=== PATIENT | male | born 1930 | race Caucasian/White ===

== ENCOUNTER 2017-08-18 17:20 | Inpatient (IN) | payer MEDICARE ==
[~2017-08-18] VITALS: Ht 170.2 cm; Wt 82.1 kg
[~2017-08-18 17:20] MED LIST: AMOX500C PO; ASPI-147 PO; BENZ1CAP54 PO; GLIP1TAB60 PO; LISI40TA PO; NAPR-855 PO; NIFE1TAB PO; POTA10CA PO; SIMV40TA PO; TRIA37.5 PO
[2017-08-18 17:21] VITALS: BP 139/67; PULSE 90; RESP 18; TEMP 99.5; O2SAT 94
[2017-08-18] MEDS ORDERED: AZAT50 PO (18:09)
[2017-08-18] MEDS ORDERED: SODIUM CHLORIDE 0.9% FLUSH 10 ML FLUSH IVF PRN (18:15)
[2017-08-18 18:16] VITALS: RESP 18; O2SAT 95; O2SAT 97
--- NOTE | 2017-08-18 18:28 | PD ---
HPI Chief Complaint: General Weakness Time Seen by Provider: 17:45 Travel History International Travel<30 days: No Contact w/Intl Traveler<30days: No Traveled to known affect area: No History of Present Illness HPI 87-year-old male presents emergency department for evaluation of generalized weakness for the past 3 weeks. The patient follows the [facility] and according to his daughter had 2 bouts of flulike illness both of her to resolve but he hasn't rebounded back from the second one. Patient just states he feels no energy, denies any depression said feeling cough congestion runny nose dysuria abdominal pain nausea vomiting. The only other symptom positive on his review of systems is some minimal chills which expressed last night. Otherwise he states he feels okay. Symptoms moderate, for the past 3 weeks, constant, context as above. 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 Naproxen 375 Mg Tab 375 Mg PO BID Ecotrin Low Strength (Aspirin) 81 Mg Tabdr 81 Mg PO DAILY Nifedipine ER 24 HR (Nifedipine) 90 Mg Tab 90 Mg PO DAILY Lisinopril 40 Mg Tab 40 Mg PO DAILY Simvastatin 40 Mg Tab 40 Mg PO HS Potassium Chloride ER (Potassium Chloride) 10 Meq Cap 10 Meq PO DAILY Glipizide ER (Glipizide) 2.5 Mg Alejandro 2.5 Mg PO DAILY Take with breakfast or first main meal of the day Review of Systems Except as stated in HPI: all other systems reviewed are Neg Physical Exam Narrative GENERAL: Well-developed well-nourished, quite pleasant in no obvious distress. SKIN: Focused skin assessment warm/dry. HEAD: Atraumatic. Normocephalic. EYES: Pupils equal and round. No scleral icterus. No injection or drainage. ENT: No nasal bleeding or discharge. Mucous membranes pink and moist. The scar bilaterally, oropharynx clear moist. NECK: Trachea midline. No JVD. CARDIOVASCULAR: Regular rate and rhythm. No murmur appreciated. RESPIRATORY: No accessory muscle use. Clear to auscultation. Breath sounds equal bilaterally. GASTROINTESTINAL: Abdomen soft, non-tender, nondistended. Hepatic and splenic margins not palpable. MUSCULOSKELETAL: No obvious deformities. No clubbing. No cyanosis. No edema. NEUROLOGICAL: Awake and alert. No obvious cranial nerve deficits. Motor grossly within normal limits. Normal speech. PSYCHIATRIC: Appropriate mood and affect; insight and judgment normal. Data Data Last Documented VS Vital Signs Date Time Temp Pulse Resp B/P (MAP) Pulse Ox O2 Delivery O2 Flow Rate FiO2 08/18/17 19:11 76 20 145/69 (94) 96 Room Air 08/18/17 17:21 99.5 Orders Orders Electrocardiogram (08/18/17 18:08) Ckmb (Isoenzyme) Profile (08/18/17 18:08) Complete Blood Count With Diff (08/18/17 18:08) Comprehensive Metabolic Panel (08/18/17 18:08) Magnesium (Mg) (08/18/17 18:08) Prothrombin Time / Inr (Pt) (08/18/17 18:08) Act Partial Throm Time (Ptt) (08/18/17 18:08) Troponin I (08/18/17 18:08) Ecg Monitoring (08/18/17 18:08) Iv Access Insert/Monitor (08/18/17 18:08) Oximetry (08/18/17 18:08) Oxygen Administration (08/18/17 18:08) Sodium Chloride 0.9% Flush (Ns Flush) (08/18/17 18:15) Influenzae A/B Antigen (08/18/17 18:23) Thyroid Stimulating Hormone (08/18/17 18:23) Chest, Pa & Lat (08/18/17 ) Admit Order (Ed Use Only) (08/18/17 21:15) Labs Laboratory Tests Test 08/18/17 18:15 White Blood Count 12.4 TH/MM3 Red Blood Count 4.08 MIL/MM3 Hemoglobin 13.2 GM/DL Hematocrit 37.2 % Mean Corpuscular Volume 91.3 FL Mean Corpuscular Hemoglobin 32.4 PG Mean Corpuscular Hemoglobin Concent 35.5 % Red Cell Distribution Width 13.8 % Platelet Count 361 TH/MM3 Mean Platelet Volume 7.5 FL Neutrophils (%) (Auto) 96.1 % Lymphocytes (%) (Auto) 1.2 % Monocytes (%) (Auto) 1.8 % Eosinophils (%) (Auto) 0.4 % Basophils (%) (Auto) 0.5 % Neutrophils # (Auto) 11.9 TH/MM3 Lymphocytes # (Auto) 0.1 TH/MM3 Monocytes # (Auto) 0.2 TH/MM3 Eosinophils # (Auto) 0.1 TH/MM3 Basophils # (Auto) 0.1 TH/MM3 CBC Comment DIFF FINAL Differential Comment Prothrombin Time 12.2 SEC Prothromb Time International Ratio 1.1 RATIO Activated Partial Thromboplast Time 32.7 SEC Blood Urea Nitrogen 26 MG/DL Creatinine 1.00 MG/DL Random Glucose 122 MG/DL Total Protein 7.1 GM/DL Albumin 2.5 GM/DL Calcium Level 8.4 MG/DL Magnesium Level 1.7 MG/DL Alkaline Phosphatase 57 U/L Aspartate Amino Transf (AST/SGOT) 83 U/L Alanine Aminotransferase (ALT/SGPT) 87 U/L Total Bilirubin 0.8 MG/DL Sodium Level 128 MEQ/L Potassium Level 3.6 MEQ/L Chloride Level 92 MEQ/L Carbon Dioxide Level 29.0 MEQ/L Anion Gap 7 MEQ/L Estimat Glomerular Filtration Rate 71 ML/MIN Total Creatine Kinase 31 U/L Troponin I LESS THAN 0.02 NG/ML Thyroid Stimulating Hormone 3rd Gen 4.620 uIU/ML MDM Medical Decision Making Medical Screen Exam Complete: Yes Emergency Medical Condition: Yes Differential Diagnosis Hypothyroid, pneumonia, urinary tract infection, anemia, fatigue. Narrative Course Patient roomed in emergency department, appears well in no obvious distress, basic labs have been ordered, patient will be discussed with oncoming provider at 1900 shift change to follow-up labs and disposition appropriately. Rigo Driscoll MD Aug 18, 2017 18:28
[2017-08-18 18:47] LABS: AUTOMATED NEUTROPHIL # 11.9 TH/MM3 (1.8-7.7); BASOPHIL # 0.1 TH/MM3 (0-0.2); BASOPHIL % 0.5 % (0.0-2.0); EOSINOPHIL # 0.1 TH/MM3 (0-0.4); EOSINOPHIL % 0.4 % (0.0-4.0); HEMATOCRIT 37.2 % (39.0-51.0); HEMO FLAGS DIFF FINAL; LYMPH % 1.2 % (9.0-44.0); LYMPHOCYTE # 0.1 TH/MM3 (1.0-4.8); MEAN CELL VOLUME 91.3 FL (80.0-100.0); MEAN CORPUSCULAR HEMOGLOBIN 32.4 PG (27.0-34.0); MEAN CORPUSCULAR HGB CONC 35.5 % (32.0-36.0); MONO % 1.8 % (0.0-8.0); NEUT % 96.1 % (16.0-70.0); PLATELET COUNT 361 TH/MM3 (150-450); RED BLOOD COUNT 4.08 MIL/MM3 (4.50-5.90); RED CELL DISTRIBUTION WIDTH 13.8 % (11.6-17.2); WHITE BLOOD COUNT 12.4 TH/MM3 (4.0-11.0)
[2017-08-18 19:00] LABS: APTT (PATIENT) 32.7 SEC (24.3-30.1); INTERNATIONAL NORMALIZED RATIO 1.1 RATIO; PROTHROMBIN TIME - PATIENT 12.2 SEC (9.8-11.6)
[2017-08-18 19:02] LABS: ANION GAP 7 MEQ/L (5-15); AST (GOT) 83 U/L (15-37); BLOOD UREA NITROGEN 26 MG/DL (7-18); CHLORIDE 92 MEQ/L (98-107); GLOMERULAR FILTRATION RATE 71 ML/MIN (>89); MAGNESIUM 1.7 MG/DL (1.5-2.5); POTASSIUM 3.6 MEQ/L (3.5-5.1); SODIUM (NA) 128 MEQ/L (136-145)
[2017-08-18 19:04] LABS: ALT (GPT) 87 U/L (12-78)
[2017-08-18 19:07] LABS: ALKALINE PHOSPHATASE 57 U/L (45-117); TOTAL BILIRUBIN ADULT 0.8 MG/DL (0.2-1.0)
[2017-08-18 19:10] LABS: CREATINE KINASE 31 U/L (39-308)
[2017-08-18 19:11] VITALS: BP 145/69; PULSE 76; RESP 20; O2SAT 96
--- NOTE | 2017-08-18 19:11 | RADRPT ---
EXAM DATE/TIME: 08/18/2017 18:54 [facility] COMPARISON: CHEST PA & LAT, May 22, 2017, 10:27. INDICATIONS : Shortness of breath, weakness, dizziness. MEDICAL HISTORY : None. SURGICAL HISTORY : None. ENCOUNTER: Initial ACUITY: 3 days PAIN SCORE: 0/10 LOCATION: Bilateral chest FINDINGS: PA and lateral views of the chest demonstrate the lungs to be symmetrically aerated without evidence of mass, infiltrate or effusion. The cardiomediastinal contours are unremarkable. Mild degenerative changes in the mid thoracic spine, stable.. CONCLUSION: No acute cardiopulmonary disease. Hector Green MD on August 18, 2017 at 19:10 Board Certified Radiologist. This report was verified electronically.
--- NOTE | 2017-08-18 20:55 | PD ---
Physical Exam Date Seen by Provider: Aug 18, 2017 Data Data Last Documented VS Vital Signs Date Time Temp Pulse Resp B/P (MAP) Pulse Ox O2 Delivery O2 Flow Rate FiO2 08/18/17 19:11 76 20 145/69 (94) 96 Room Air 08/18/17 17:21 99.5 Orders Orders Electrocardiogram (08/18/17 18:08) Ckmb (Isoenzyme) Profile (08/18/17 18:08) Complete Blood Count With Diff (08/18/17 18:08) Comprehensive Metabolic Panel (08/18/17 18:08) Magnesium (Mg) (08/18/17 18:08) Prothrombin Time / Inr (Pt) (08/18/17 18:08) Act Partial Throm Time (Ptt) (08/18/17 18:08) Troponin I (08/18/17 18:08) Ecg Monitoring (08/18/17 18:08) Iv Access Insert/Monitor (08/18/17 18:08) Oximetry (08/18/17 18:08) Oxygen Administration (08/18/17 18:08) Sodium Chloride 0.9% Flush (Ns Flush) (08/18/17 18:15) Influenzae A/B Antigen (08/18/17 18:23) Thyroid Stimulating Hormone (08/18/17 18:23) Chest, Pa & Lat (08/18/17 ) Labs Laboratory Tests Test 08/18/17 18:15 White Blood Count 12.4 TH/MM3 Red Blood Count 4.08 MIL/MM3 Hemoglobin 13.2 GM/DL Hematocrit 37.2 % Mean Corpuscular Volume 91.3 FL Mean Corpuscular Hemoglobin 32.4 PG Mean Corpuscular Hemoglobin Concent 35.5 % Red Cell Distribution Width 13.8 % Platelet Count 361 TH/MM3 Mean Platelet Volume 7.5 FL Neutrophils (%) (Auto) 96.1 % Lymphocytes (%) (Auto) 1.2 % Monocytes (%) (Auto) 1.8 % Eosinophils (%) (Auto) 0.4 % Basophils (%) (Auto) 0.5 % Neutrophils # (Auto) 11.9 TH/MM3 Lymphocytes # (Auto) 0.1 TH/MM3 Monocytes # (Auto) 0.2 TH/MM3 Eosinophils # (Auto) 0.1 TH/MM3 Basophils # (Auto) 0.1 TH/MM3 CBC Comment DIFF FINAL Differential Comment Prothrombin Time 12.2 SEC Prothromb Time International Ratio 1.1 RATIO Activated Partial Thromboplast Time 32.7 SEC Blood Urea Nitrogen 26 MG/DL Creatinine 1.00 MG/DL Random Glucose 122 MG/DL Total Protein 7.1 GM/DL Albumin 2.5 GM/DL Calcium Level 8.4 MG/DL Magnesium Level 1.7 MG/DL Alkaline Phosphatase 57 U/L Aspartate Amino Transf (AST/SGOT) 83 U/L Alanine Aminotransferase (ALT/SGPT) 87 U/L Total Bilirubin 0.8 MG/DL Sodium Level 128 MEQ/L Potassium Level 3.6 MEQ/L Chloride Level 92 MEQ/L Carbon Dioxide Level 29.0 MEQ/L Anion Gap 7 MEQ/L Estimat Glomerular Filtration Rate 71 ML/MIN Total Creatine Kinase 31 U/L Troponin I LESS THAN 0.02 NG/ML MDM Medical Record Reviewed: Yes Supervised Visit with ZAINAB: No Interpretation(s) Vital Signs Date Time Temp Pulse Resp B/P (MAP) Pulse Ox O2 Delivery O2 Flow Rate FiO2 08/18/17 19:11 76 20 145/69 (94) 96 Room Air 08/18/17 18:16 18 97 Room Air 08/18/17 18:16 97 Room Air 08/18/17 18:10 80 17 96 Room Air 08/18/17 17:21 99.5 90 18 139/67 (91) 94 Room Air CBC & BMP Diagram 08/18/17 18:15 Total Protein 7.1, Albumin 2.5 L, Calcium Level 8.4 L, Magnesium Level 1.7, Alkaline Phosphatase 57, Aspartate Amino Transf (AST/SGOT) 83 H, Alanine Aminotransferase (ALT/SGPT) 87 H, Total Bilirubin 0.8 Last Impressions Chest X-Ray 08/18/17 0000 Signed Impressions: Service Date/Time: Friday, August 18, 2017 18:54 - CONCLUSION: No acute cardiopulmonary disease. Hector Green MD Narrative Course Patient signed out to me by Dr. Driscoll at change of shift. Patient with generalized weakness which is an ongoing for the past few weeks, patient's blood work was pending at change of shift. CBC & BMP Diagram 08/18/17 18:15 Total Protein 7.1, Albumin 2.5 L, Calcium Level 8.4 L, Magnesium Level 1.7, Alkaline Phosphatase 57, Aspartate Amino Transf (AST/SGOT) 83 H, Alanine Aminotransferase (ALT/SGPT) 87 H, Total Bilirubin 0.8 Microbiology Date/Time Source Procedure Growth Status 08/18/17 18:21 Nasal Aspirate Influenza Types A,B Antigen (REGINE) - Final NEGATIVE FOR FLU A AND B ANTIGEN.... Complete Patient's sodium is 128, concern for symptomatic hyponatremia. Patient will require observation this time. Case reviewed with Dr. Daniels who accepts pt to service Diagnosis Primary Impression: Hyponatremia Admitting Information Admitting Physician Requests: Observation Gwen Land DO Aug 18, 2017 20:55
[2017-08-18 21:40] VITALS: BP 132/62; PULSE 73; RESP 18; O2SAT 94
[2017-08-18] MEDS ORDERED: LACTULOSE SYRUP 20 GM/30 ML CUP PO PRN (23:00)
[2017-08-18] MEDS ORDERED: MAGNESIUM HYDROXIDE SUSP 30 ML CUP PO PRN (23:00)
[2017-08-18] MEDS ORDERED: ONDANSETRON HCL 4 MG/2 ML VIAL IVP PRN (23:00)
[2017-08-18] MEDS ORDERED: BISACODYL 10 MG SUPP RECTAL PRN (23:00)
[2017-08-18] MEDS ORDERED: SENNOSIDES 8.6 MG TAB PO PRN (23:00)
[2017-08-18] MEDS ORDERED: ACETAMINOPHEN 325 MG TAB PO PRN (23:00)
[2017-08-18] MEDS ORDERED: SODIUM CHLOR 0.9% 1000 ML INJ 1,000 ML IV SCH (23:00)
[2017-08-18] MEDS ORDERED: NALOXONE HCL 0.4 MG/ML AMP IV PUSH PRN (23:00)
[2017-08-18] MEDS ORDERED: SODIUM CHLORIDE 0.9% FLUSH 10 ML FLUSH IV FLUSH PRN (23:00)
--- NOTE | 2017-08-18 23:16 | HHI.HP ---
[facility] Admission Diagnosis Symptomatic hyponatremia Diagnoses: Travel History International Travel<30 Days: No Contact w/Intl Traveler <30 Da: No Traveled to Known Affected Are: No History of Present Illness 87-year-old male with a past medical history significant for hypertension, hyperlipidemia, borderline diabetes mellitus and rheumatoid arthritis presents with a 3 week history of worsening fatigue. The patient is recovering from an upper respiratory infection and "just hasn't bounced back." He reports feeling is that he has no energy and is unable to complete his daily tasks. He denies fever but endorses chills. Denies congestion, cough, chest pain, shortness of breath. The patient's lab work was significant for a sodium of 128. He also has a mild transaminitis with AST/ALT of 83/87, unknown baseline as patient has not had lab work done here before. He is treated at the [facility] for his chronic medical conditions. Review of Systems Denies fever, endorses chills Denies blurry vision, otorrhea, rhinorrhea Denies sore throat and cough No chest pain, palpitations, shortness of breath No abdominal pain Denies constipation/diarrhea/nausea/vomiting Denies muscle pain/weakness No rashes Past Family Social History Past Medical History Rheumatoid arthritis Hypertension Hyperlipidemia Borderline diabetes mellitus, on glipizide Past Surgical History None Reported Medications Reported Meds & Active Scripts Active Reported Azathioprine 50 Mg Tab 50 Mg PO BID Hazardous agent use appropriate precautions for handling and disposal. Naproxen 375 Mg Tab 375 Mg PO BID Ecotrin Low Strength (Aspirin) 81 Mg Tabdr 81 Mg PO DAILY Nifedipine ER 24 HR (Nifedipine) 90 Mg Tab 90 Mg PO DAILY Lisinopril 40 Mg Tab 40 Mg PO DAILY Simvastatin 40 Mg Tab 40 Mg PO HS Triamterene-Hydrochlorothiazide 37.5-25 Mg Tab 1 Tab PO DAILY Potassium Chloride ER (Potassium Chloride) 10 Meq Cap 10 Meq PO DAILY Glipizide ER (Glipizide) 2.5 Mg Alejandro 2.5 Mg PO DAILY Take with breakfast or first main meal of the day Allergies: Coded Allergies: No Known Drug Allergies (Verified Allergy, Unknown, 08/18/17) Family History Mother with colon cancer. Father with throat cancer. Social History Never smoker. Drinks approximately 2 drinks per night. Denies illicit drugs. Physical Exam Vital Signs Vital Signs Date Time Temp Pulse Resp B/P (MAP) Pulse Ox O2 Delivery O2 Flow Rate FiO2 08/18/17 21:40 73 18 132/62 (85) 94 Room Air 08/18/17 19:11 76 20 145/69 (94) 96 Room Air 08/18/17 18:16 18 97 Room Air 08/18/17 18:16 97 Room Air 08/18/17 18:10 80 17 96 Room Air 08/18/17 17:21 99.5 90 18 139/67 (91) 94 Room Air Physical Exam GENERAL: Elderly male lying in bed SKIN: No rashes, ecchymoses or lesions. Cool and dry. HEAD: Atraumatic. Normocephalic. No temporal or scalp tenderness. EYES: Pupils equal round and reactive. Extraocular motions intact. No scleral icterus. No injection or drainage. ENT: Nose without bleeding, purulent drainage or septal hematoma. Throat without erythema, tonsillar hypertrophy or exudate. Uvula midline. Airway patent. NECK: Trachea midline. No JVD or lymphadenopathy. Supple, nontender, no meningeal signs. CARDIOVASCULAR: Regular rate and rhythm with 3/6 LAURYN RESPIRATORY: Clear to auscultation. Breath sounds equal bilaterally. No wheezes , rales, or rhonchi. GASTROINTESTINAL: Abdomen soft, non-tender, nondistended. No hepato-splenomegaly , or palpable masses. No guarding. MUSCULOSKELETAL: Extremities without clubbing, cyanosis, or edema. No joint tenderness, effusion, or edema noted. No calf tenderness. Negative Homans sign bilaterally. NEUROLOGICAL: Awake and alert. Cranial nerves II through XII intact. Motor and sensory grossly within normal limits. Normal speech. Laboratory Laboratory Tests Test 08/18/17 18:15 White Blood Count 12.4 Red Blood Count 4.08 Hemoglobin 13.2 Hematocrit 37.2 Mean Corpuscular Volume 91.3 Mean Corpuscular Hemoglobin 32.4 Mean Corpuscular Hemoglobin Concent 35.5 Red Cell Distribution Width 13.8 Platelet Count 361 Mean Platelet Volume 7.5 Neutrophils (%) (Auto) 96.1 Lymphocytes (%) (Auto) 1.2 Monocytes (%) (Auto) 1.8 Eosinophils (%) (Auto) 0.4 Basophils (%) (Auto) 0.5 Neutrophils # (Auto) 11.9 Lymphocytes # (Auto) 0.1 Monocytes # (Auto) 0.2 Eosinophils # (Auto) 0.1 Basophils # (Auto) 0.1 CBC Comment DIFF FINAL Differential Comment Prothrombin Time 12.2 Prothromb Time International Ratio 1.1 Activated Partial Thromboplast Time 32.7 Blood Urea Nitrogen 26 Creatinine 1.00 Random Glucose 122 Total Protein 7.1 Albumin 2.5 Calcium Level 8.4 Magnesium Level 1.7 Alkaline Phosphatase 57 Aspartate Amino Transf (AST/SGOT) 83 Alanine Aminotransferase (ALT/SGPT) 87 Total Bilirubin 0.8 Sodium Level 128 Potassium Level 3.6 Chloride Level 92 Carbon Dioxide Level 29.0 Anion Gap 7 Estimat Glomerular Filtration Rate 71 Total Creatine Kinase 31 Troponin I LESS THAN 0.02 Thyroid Stimulating Hormone 3rd Gen 4.620 Date/Time Source Procedure Growth Status 08/18/17 18:21 Nasal Aspirate Influenza Types A,B Antigen (REGINE) - Final NEGATIVE FOR FLU A AND B ANTIGEN.... Complete Result Diagram: 08/18/17181408/18/171814 Caprini VTE Risk Assessment Caprini VTE Risk Assessment: Mod/High Risk (score >= 2) Caprini Risk Assessment Model Point Value = 1 Point Value = 2 Point Value = 3 Point Value = 5 Age 41-60 Minor surgery BMI > 25 kg/m2 Swollen legs Varicose veins or History of unexplained or recurrent spontaneous Oral contraceptives or hormone replacement Sepsis (< 1 month) Serious lung disease, including pneumonia (< 1 month) Abnormal pulmonary function Acute myocardial infarction Congestive heart failure (< 1 month) History of inflammatory bowel disease Medical patient at bed rest Age 61-74 Arthroscopic surgery Major open surgery (> 45 min) Laparoscopic surgery (> 45 min) Malignancy Confined to bed (> 72 hours) Immobilizing plaster cast Central venous access Age >= 75 History of VTE Family history of VTE Factor V Leiden Prothrombin [id number] Lupus anticoagulant Anticardiolipin antibodies Elevated serum homocysteine Heparin-induced thrombocytopenia Other congenital or acquired thrombophilia Stroke (< 1 month) Elective arthroplasty Hip, pelvis, or leg fracture Acute spinal cord injury (< 1 month) Prophylaxis Regimen Total Risk Factor Score Risk Level Prophylaxis Regimen 0-1 Low Early ambulation 2 Moderate Order ONE of the following: *Sequential Compression Device (SCD) *Heparin 5000 units SQ BID 3-4 Higher Order ONE of the following medications: *Heparin 5000 units SQ TID *Enoxaparin/Lovenox 40 mg SQ daily (WT < 150 kg, CrCl > 30 mL/min) *Enoxaparin/Lovenox 30 mg SQ daily (WT < 150 kg, CrCl > 10-29 mL/min) *Enoxaparin/Lovenox 30 mg SQ BID (WT < 150 kg, CrCl > 30 mL/min) AND/OR *Sequential Compression Device (SCD) 5 or more Highest Order ONE of the following medications: *Heparin 5000 units SQ TID (Preferred with Epidurals) *Enoxaparin/Lovenox 40 mg SQ daily (WT < 150 kg, CrCl > 30 mL/min) *Enoxaparin/Lovenox 30 mg SQ daily (WT < 150 kg, CrCl > 10-29 mL/min) *Enoxaparin/Lovenox 30 mg SQ BID (WT < 150 kg, CrCl > 30 mL/min) AND *Sequential Compression Device (SCD) Assessment and Plan Assessment and Plan 87-year-old male with a past medical history significant for rheumatoid arthritis, hypertension, hyperlipidemia and borderline diabetes mellitus presents with a three-week history of increasing fatigue. Found to have a sodium of 128. 1. Symptomatic hyponatremia Sodium 128 Fluid restriction, NS at 50 cc/hr Monitor BMP 2. Mild transaminitis AST/ALT 83/87 Unknown baseline [facility] will need [facility] 3. Rheumatoid arthritis/hypertension/hyperlipidemia Continue home medications 4. Borderline diabetes mellitus Holding home glipizide Monitor blood glucose FEN Heart healthy diet with fluid restriction NS at 50 cc/hr Electrolytes: as above Heparin Case discussed with ER physician at length Physician Certification 2 Midnight Certification Type: Admission for Inpatient Services Order for Inpatient Services The services are ordered in accordance with Medicare regulations or non- Medicare payer requirements, as applicable. In the case of services not specified as inpatient-only, they are appropriately provided as inpatient services in accordance with the 2-midnight benchmark. Estimated LOS (days): 2 2 days is the estimated time the patient will need to remain in the hospital, assuming treatment plan goals are met and no additional complications. Post-Hospital Plan: Not yet determined Gwen Daniels MD Aug 18, 2017 23:16
[2017-08-18] MEDS: HEPARIN SODIUM - SQ 10,000 UNITS/ML VIAL SQ SCH (23:52)
[2017-08-18 23:53] VITALS: BP 133/68
[2017-08-19 00:47] VITALS: O2SAT 95
[2017-08-19 00:51] VITALS: BP 122/58; PULSE 68; RESP 19; TEMP 97.9; O2SAT 94
[2017-08-19 04:39] VITALS: BP 129/61; PULSE 66; RESP 20; TEMP 98; O2SAT 95
[2017-08-19] MEDS: HEPARIN SODIUM - SQ 10,000 UNITS/ML VIAL SQ SCH (06:16)
[2017-08-19 06:56] LABS: AUTOMATED NEUTROPHIL # 7.7 TH/MM3 (1.8-7.7); BASOPHIL % 0.2 % (0.0-2.0); EOSINOPHIL # 0.2 TH/MM3 (0-0.4); EOSINOPHIL % 1.9 % (0.0-4.0); HEMATOCRIT 34.5 % (39.0-51.0); HEMO FLAGS DIFF FINAL; LYMPH % 4.4 % (9.0-44.0); LYMPHOCYTE # 0.4 TH/MM3 (1.0-4.8); MEAN CELL VOLUME 90.8 FL (80.0-100.0); MEAN CORPUSCULAR HGB CONC 35.2 % (32.0-36.0); MONO % 3.3 % (0.0-8.0); NEUT % 90.2 % (16.0-70.0); PLATELET COUNT 321 TH/MM3 (150-450); WHITE BLOOD COUNT 8.5 TH/MM3 (4.0-11.0)
[2017-08-19 07:08] LABS: ALT (GPT) 71 U/L (12-78); ANION GAP 8 MEQ/L (5-15); AST (GOT) 57 U/L (15-37); BICARBONATE 28.9 MEQ/L (21.0-32.0); BLOOD UREA NITROGEN 20 MG/DL (7-18); CHLORIDE 97 MEQ/L (98-107); GLOMERULAR FILTRATION RATE 113 ML/MIN (>89); POTASSIUM 3.3 MEQ/L (3.5-5.1); SODIUM (NA) 134 MEQ/L (136-145)
[2017-08-19 07:11] LABS: ALKALINE PHOSPHATASE 49 U/L (45-117); TOTAL BILIRUBIN ADULT 0.6 MG/DL (0.2-1.0)
--- NOTE | 2017-08-19 08:13 | HHI.PR ---
Subjective Remarks Feels much better and wants to go home. Tolerates food. No n/v/d/c./ No abd pain or muscle cramps. He is ambulating without any problems. Had a normal BM No fever or chills. Objective Vitals Vital Signs Date Time Temp Pulse Resp B/P (MAP) Pulse Ox O2 Delivery O2 Flow Rate FiO2 08/19/17 04:39 98.0 66 20 129/61 (83) 95 08/19/17 00:51 97.9 68 19 122/58 (79) 94 08/19/17 00:47 95 08/18/17 23:53 74 18 133/68 (89) 95 08/18/17 21:40 73 18 132/62 (85) 94 Room Air 08/18/17 19:11 76 20 145/69 (94) 96 Room Air 08/18/17 18:16 18 97 Room Air 08/18/17 18:16 97 Room Air 08/18/17 18:10 80 17 96 Room Air 08/18/17 17:21 99.5 90 18 139/67 (91) 94 Room Air I/O 08/18/17 08/18/17 08/18/17 08/19/17 08/19/17 08/19/17 07:00 15:00 23:00 07:00 15:00 23:00 Intake Total 250 ml Balance 250 ml Intake IV Total 250 ml # Voids 2 Result Diagram: 08/19/17 0608 08/19/17 0608 Imaging Last Impressions Chest X-Ray 08/18/17 0000 Signed Impressions: Service Date/Time: Friday, August 18, 2017 18:54 - CONCLUSION: No acute cardiopulmonary disease. Hector Green MD Objective Remarks GENERAL: Elderly male lying in bed CARDIOVASCULAR: Regular rate and rhythm with 3/6 LAURYN RESPIRATORY: Clear to auscultation. Breath sounds equal bilaterally. No wheezes , rales, or rhonchi. GASTROINTESTINAL: Abdomen soft, non-tender, nondistended. No hepato-splenomegaly , or palpable masses. No guarding. MUSCULOSKELETAL: Extremities without clubbing, cyanosis, or edema. No joint tenderness, effusion, or edema noted. No calf tenderness. Negative Homans sign bilaterally. NEUROLOGICAL: Awake and alert. Cranial nerves II through XII intact. Motor and sensory grossly within normal limits. Normal speech. A/P Assessment and Plan 87-year-old male with a past medical history significant for rheumatoid arthritis, hypertension, hyperlipidemia and borderline diabetes mellitus presents with a three-week history of increasing fatigue. Found to have a sodium of 128. Symptomatic hyponatremia Sodium 128 on admission . Improved to 134 with IVF Fluid restriction, NS at 50 cc/hr Monitor BMP Hold triamtereme HCTZ. To follwo up with his PCP as OP Mild transaminitis AST/ALT 83/87 Unknown baseline [facility], will need [facility] evaluation Rheumatoid arthritis/hypertension/hyperlipidemia Continue home medications Borderline diabetes mellitus Holding home glipizide Monitor blood glucose Hypokalemia. Replaced with KCl PO. Monitor and replace as need. DVT ppx scd/teds, Heparin Discussed with the patient, nurse Patient improved significantly. Discharged home in stable condition to follow up as OP with PCP and consultants Discharge Planning Discharged home in stable condition to follow up as OP with PCP and consultants Diet regular diet as tolerated Activity ad quintin as tolerated Meds per med reconciliations. Hold triamterene /HCTZ . To follow up with his PCP as OP. Kaitlyn Oscar MD Aug 19, 2017 08:13
[2017-08-19 08:17] VITALS: BP 127/60; PULSE 70; RESP 18; TEMP 98.5; O2SAT 94
[2017-08-19] MEDS ORDERED: NIFEdipine 90 MG SUSTAINED RELEASE TAB PO SCH (09:00)
[2017-08-19] MEDS ORDERED: azaTHIOprine 50 MG TAB PO SCH (09:00)
[2017-08-19] MEDS ORDERED: ASPIRIN EC 81 MG TABEC PO SCH (09:00)
[2017-08-19] MEDS ORDERED: POTASSIUM CHLORIDE 10 MEQ CONTROLLED RELEASE TAB PO ONE (09:00)
[2017-08-19] MEDS ORDERED: SODIUM CHLORIDE 0.9% FLUSH 10 ML FLUSH IV FLUSH SCH (09:00)
[2017-08-19] MEDS ORDERED: TRIAMTERENE/HCTZ 37.5 MG/25 MG TAB PO SCH (09:00)
[2017-08-19] MEDS ORDERED: DOCUSATE SODIUM 50 MG/SENNA 8.6 MG TAB PO SCH (09:00)
[2017-08-19] MEDS ORDERED: LISINOPRIL 20 MG TAB PO SCH (09:00)
--- NOTE | 2017-08-19 10:37 | EKG ---
Date Performed: 08/18/2017 Time Performed: 18:14:21 PTAGE: 87 years EKG: Sinus rhythm NONSPECIFIC T-WAVE ABNORMALITY BORDERLINE ECG NO PREVIOUS TRACING DOCTOR: Truong Chamberlain Interpretating Date/Time 08/19/2017 10:35:59
--- NOTE | 2017-08-19 11:28 | HHI.DCPOC ---
Discharge Care Plan Diagnosis: (1) Hyponatremia Goals to Promote Your Health * To prevent worsening of your condition and complications * To maintain your health at the optimal level Directions to Meet Your Goals Take your medications as prescribed Follow your dietary instruction Follow activity as directed Keep your appointments as scheduled Take your immunizations and boosters as scheduled If your symptoms worsen call your PCP, if no PCP go to Urgent Care Center or Emergency Room Smoking is Dangerous to Your Health. Avoid second hand smoke Call the 24-hour hour crisis hotline for domestic abuse at Kaitlyn Oscar MD Aug 19, 2017 11:28
[2017-08-19 12:16] VITALS: BP 124/60; PULSE 71; RESP 18; TEMP 98; O2SAT 95
[2017-08-19] MEDS ORDERED: PRAVASTATIN SOD 40 MG TAB PO SCH (21:00)
[2017-08-20] MEDS ORDERED: INFLUENZA VIRUS VACCINE (QUADRIVALENT) 0.5 ML SYR IM ONE (10:00)
== END 2017-08-19 12:30 | disposition home or self-care (01) | DRG 641 ==
LOC: NEPE 17:20 → NEDA 21:17 → OBSVTOIN 22:59 → N05B 08-19 00:13
PROVIDERS: ADMIT Hospitalist; ATTEND Hospitalist
DX: E87.1 Hypo-osmolality and hyponatremia (principal); M06.9 Rheumatoid arthritis, unspecified; E11.9 Type 2 diabetes mellitus without complications; Z79.84 Long term (current) use of oral hypoglycemic drugs; I10 Essential (primary) hypertension; R74.0 Nonspecific elevation of levels of transaminase and lactic acid dehydrogenase [LDH]; E87.6 Hypokalemia; E78.5 Hyperlipidemia, unspecified; Z79.82 Long term (current) use of aspirin
CPT/HCPCS: 71020; 80053; 82550; 82948; 83735; 84443; 84484; 85025; 85610; 85730; 87804; 93005; J1644; J7030; J7500

== ENCOUNTER 2017-11-29 23:15 | Observation (INO) | payer MEDICARE, OTHER ==
[~2017-11-29] VITALS: Ht 170.2 cm; Wt 74.0 kg
[~2017-11-29 23:15] MED LIST changes: -AMOX500C PO; +AZAT50 PO; -BENZ1CAP54 PO; -TRIA37.5 PO
[2017-11-29] MEDS ORDERED: IOHEXOL 350 MG/ML 10 ML VIAL (for RAD DIAG) IVCONTRAST ONE (23:16)
[2017-11-29] MEDS: NITROGLYCERIN 0.4 MG SL 25 TABS/BTL SL SCH ×2 (23:45→23:50)
[2017-11-29] MEDS ORDERED: SODIUM CHLORIDE 0.9% FLUSH 10 ML FLUSH IVF PRN (23:45)
[2017-11-29] MEDS ORDERED: NITROGLYCERIN 2% OINT 1 GM PACKET TOP ONE (23:45)
--- NOTE | 2017-11-29 23:47 | PD ---
HPI Chief Complaint: Chest Pain Time Seen by Provider: 23:30 Travel History International Travel<30 days: No Contact w/Intl Traveler<30days: No Traveled to known affect area: No History of Present Illness HPI The patient is an 87 year old male who presents to the [facility] emergency department with a history of chest pain that he reports began at around 8 PM just after he went to lie down to go to bed. He reports that he had not fallen asleep yet when he had onset of a dull pain in the center of his chest. He reports that it is coming and going. He reports that it is worse with taking a deep breath. He denies having any fevers or chills, cough or congestion. He denies having any nausea or vomiting associated with this. He denies having any diaphoresis. He reports having some shortness of breath. He denies ever having a history of DVT, PE, congestive heart failure, or myocardial infarction. On review of systems otherwise, the patient denies having any radiation of his chest pain, neck pain, abdominal pain, diarrhea, urinary symptoms, or neurologic symptoms. [facility] Past Medical History Narrative Medical The patient's past medical history is significant for rheumatoid arthritis with recent exacerbation. The patient is on Enbrel injections. The patient has a history of hypertension, diabetes mellitus, hyperlipidemia. Arthritis: Yes Cancer: Yes (skin) Cardiovascular Problems: Yes High Cholesterol: Yes Diabetes: Yes Diminished Hearing: No Hypertension: Yes Musculoskeletal: Yes Integumentary: Yes Past Surgical History Narrative Surgical The patient's past surgical history is reportedly none. 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 Naproxen 375 Mg Tab 375 Mg PO BID Ecotrin Low Strength (Aspirin) 81 Mg Tabdr 81 Mg PO DAILY Nifedipine ER 24 HR (Nifedipine) 90 Mg Tab 90 Mg PO DAILY Lisinopril 40 Mg Tab 40 Mg PO DAILY Simvastatin 40 Mg Tab 40 Mg PO HS Potassium Chloride ER (Potassium Chloride) 10 Meq Cap 10 Meq PO DAILY Glipizide ER (Glipizide) 2.5 Mg Alejandro 2.5 Mg PO DAILY Take with breakfast or first main meal of the day Review of Systems Except as stated in HPI: all other systems reviewed are Neg General / Constitutional: No: Fever Eyes: No: Visual changes HENT: No: Headaches, Rhinorrhea, Congestion Cardiovascular: Positive: Chest Pain or Discomfort, Dyspnea on exertion Respiratory: Positive: Cough, Shortness of Breath Gastrointestinal: No: Nausea, Vomiting, Diarrhea, Abdominal Pain Genitourinary: No: Dysuria Musculoskeletal: Positive: Arthralgias, Pain Skin: No Rash Neurologic: Positive: Weakness (Increased fatigue, generalized weakness), No: Focal Abnormalities, Change in Mentation, Slurred Speech, Sensory Disturbance Psychiatric: No: Depression Endocrine: No: Polydipsia Hematologic/Lymphatic: No: Easy Bruising Physical Exam Narrative General: The patient is a well-developed well-nourished male in no acute distress. Head and Neck exam: Head is normocephalic atraumatic. Eyes: EOMI, pupils are equal round and reactive to light. Nose: Midline septum with pink mucous membranes Mouth: Dentition unremarkable. Moist mucus membranes. Posterior oropharynx is not erythematous. No tonsillar hypertrophy. Uvula midline. Airway patent. Neck: No palpable lymphadenopathy. No nuchal rigidity. No thyromegaly. Cardiovascular: Regular rate and rhythm without murmurs, gallops, or rubs. No pulse deficit to the extremities on simultaneous auscultation and palpation of his radial artery. Lungs: Clear to auscultation bilaterally. No wheezes, rhonchi, or rales. Abdomen: Soft, without tenderness to palpation in all 4 quadrants of the abdomen. No guarding, rebound, or rigidity. Normal bowel sounds are audible. No tenderness on palpation of McBurney's point. Negative Kapadia sign. Extremities: No clubbing or cyanosis. The patient has trace pitting edema bilateral lower extremities. He reports having chronic lower extremity edema that is slight worse than usual. 2+ pulses in all 4 extremities. No calf tenderness on palpation. Back: No costovertebral angle tenderness to palpation. Neurologic Exam: Grossly nonfocal. Skin Exam: No rash noted. Intact skin that is warm and dry. Data Data Last Documented VS Vital Signs Date Time Temp Pulse Resp B/P (MAP) Pulse Ox O2 Delivery O2 Flow Rate FiO2 11/30/17 01:09 75 18 98 Room Air 11/30/17 01:09 2.00 11/30/17 01:09 119/59 (79) Orders Orders Electrocardiogram (11/29/17 23:33) B-Type Natriuretic Peptide (11/29/17 23:33) Ckmb (Isoenzyme) Profile (11/29/17 23:33) Complete Blood Count With Diff (11/29/17 23:33) Comprehensive Metabolic Panel (11/29/17 23:33) Magnesium (Mg) (11/29/17 23:33) Prothrombin Time / Inr (Pt) (11/29/17 23:33) Act Partial Throm Time (Ptt) (11/29/17 23:33) Troponin I (11/29/17:) Lipase (11/29/17 23:33) Chest, Single Ap (11/29/17 23:33) Ecg Monitoring (11/29/17 23:33) Bilateral Bp Monitoring (11/29/17 23:33) Iv Access Insert/Monitor (11/29/17 23:33) Oximetry (11/29/17 23:33) Oxygen Administration (11/29/17 23:33) Nitroglycerin 2% Oint (Nitroglycerin 2% (11/29/17 23:45) Sodium Chloride 0.9% Flush (Ns Flush) (11/29/17 23:45) Nitroglycerin Sl (Nitrostat Sl) (11/29/17 23:45) Ct Pulmonary Angiogram (11/30/17 01:06) Iohexol 350 Inj (Omnipaque 350 Inj) (11/29/17 23:16) Admit Order (Ed Use Only) (11/30/17 02:25) Labs Laboratory Tests Test 11/30/17 00:00 White Blood Count 8.3 TH/MM3 Red Blood Count 4.11 MIL/MM3 Hemoglobin 13.3 GM/DL Hematocrit 36.7 % Mean Corpuscular Volume 89.3 FL Mean Corpuscular Hemoglobin 32.2 PG Mean Corpuscular Hemoglobin Concent 36.1 % Red Cell Distribution Width 14.5 % Platelet Count 335 TH/MM3 Mean Platelet Volume 7.1 FL Neutrophils (%) (Auto) 82.2 % Lymphocytes (%) (Auto) 6.5 % Monocytes (%) (Auto) 7.0 % Eosinophils (%) (Auto) 3.5 % Basophils (%) (Auto) 0.8 % Neutrophils # (Auto) 6.8 TH/MM3 Lymphocytes # (Auto) 0.5 TH/MM3 Monocytes # (Auto) 0.6 TH/MM3 Eosinophils # (Auto) 0.3 TH/MM3 Basophils # (Auto) 0.1 TH/MM3 CBC Comment AUTO DIFF Differential Total Cells Counted 100 Neutrophils % (Manual) 83 % Lymphocytes % 9 % Monocytes % 4 % Eosinophils % 2 % Neutrophils # (Manual) 7.1 TH/MM3 Metamyelocytes 2 % Differential Comment FINAL DIFF MANUAL Platelet Estimate NORMAL Platelet Morphology Comment NORMAL Red Cell Morphology Comment NORMAL Prothrombin Time 10.6 SEC Prothromb Time International Ratio 1.0 RATIO Activated Partial Thromboplast Time 25.0 SEC Blood Urea Nitrogen 13 MG/DL Creatinine 0.74 MG/DL Random Glucose 133 MG/DL Total Protein 7.0 GM/DL Albumin 2.6 GM/DL Calcium Level 8.7 MG/DL Magnesium Level 1.8 MG/DL Alkaline Phosphatase 53 U/L Aspartate Amino Transf (AST/SGOT) 14 U/L Alanine Aminotransferase (ALT/SGPT) 17 U/L Total Bilirubin 0.3 MG/DL Sodium Level 135 MEQ/L Potassium Level 3.3 MEQ/L Chloride Level 98 MEQ/L Carbon Dioxide Level 28.5 MEQ/L Anion Gap 9 MEQ/L Estimat Glomerular Filtration Rate 101 ML/MIN Total Creatine Kinase 17 U/L Troponin I LESS THAN 0.02 NG/ML B-Type Natriuretic Peptide 46 PG/ML Lipase 144 U/L MDM Medical Decision Making Medical Screen Exam Complete: Yes Emergency Medical Condition: Yes Medical Record Reviewed: Yes Interpretation(s) Last Impressions CT Angiography 11/30/17 0106 Signed Impressions: Service Date/Time: Thursday, November 30, 2017 01:45 - CONCLUSION: 1. No PE is identified. 2. Small left pleural effusion. 3. There are 3 noncalcified pulmonary nodules measuring up to 7 mm. Suggest correlating with any prior outside chest CT examinations to confirm longer-term stability. If none are available consider 6-12 month followup noncontrast chest CT. 4. Nonacute findings include coronary artery calcification and small hiatal hernia. Isidoro Adkins MD Chest X-Ray 11/29/17 0544 Signed Impressions: Service Date/Time: Wednesday, November 29, 2017 23:44 - CONCLUSION: Stable chest x-ray. No acute cardiopulmonary abnormality is identified. Isidoro Adkins MD Differential Diagnosis Acute coronary syndrome, versus pneumonia, versus pneumothorax, versus pleurisy , versus pulmonary embolism, versus congestive heart failure Narrative Course During the course of the patient's emergency department visit, the patient's history, examination, and differential diagnosis were reviewed with the patient. The patient was placed on a case monitor with oximetry and frequent blood pressure monitoring. The patient had IV access obtained and blood work sent for analysis. The patient had an EKG done on arrival that shows a sinus rhythm heart rate of 82, no acute ST segment elevation, T waves are inverted in lead V1, V2. QRS duration is 80 ms, QTC 409 ms per The patient was initially provided aspirin 324 mg p.o. 1 by ambulance services prior to arrival, nitroglycerin sublingual 3 for chest pain, blood sugar noted prior to arrival to be 100. The patient's laboratory studies were reviewed and remarkable for a white count of 8.3, hemoglobin 13.3, platelets 335 with 83 neutrophils, lymphocytes 9. CMP is remarkable for sodium 135, potassium 3.3 which will be supplemented orally, glucose 133, AST 14, cardiac enzymes within normal limits, BNP 46, albumin 2.6, lipase 144, PT PTT within normal limits. Chest x-ray shows stable chest x-ray with no acute cardiopulmonary disease. CT scan of the abdomen and pelvis shows no PE, small left pleural effusion. There are 3 noncalcified pulmonary nodules measuring up to 7 mm. Suggest correlating with any prior outside chest CT exams to confirm long-term stability. On further discussion with the patient the patient's family the patient had an abnormal CT for which she has been referred to the air bag buffer and has a pending appointment. CT scan also showed nonacute findings including coronary artery calcifications and a small hiatal hernia. The patient on reexamination reports that his chest pain has improved. The patient will be admitted to the chest pain center for rule out serial cardiac enzyme protocol followed by stress testing. The patient's results were discussed with the patient, including the plan of care. I explained that further testing and/ or monitoring is indicated based on the patient's history, examination, and/ or laboratory findings. Therefore, I recommended admission for additional evaluation. The patient expressed understanding and was agreeable with this plan. The patient was admitted to the hospital in stable condition and sent to a bed under the care of the chest pain center. Diagnosis Primary Impression: Chest pain, rule out acute myocardial infarction Admitting Information Admitting Physician Requests: Karina Mandujano MD Nov 29, 2017 23:47
--- NOTE | 2017-11-30 00:12 | RADRPT ---
EXAM DATE/TIME: 11/29/2017 23:44 [facility] COMPARISON: CHEST PA & LAT, August 18, 2017, 18:54. INDICATIONS : Chest pain. MEDICAL HISTORY : None. SURGICAL HISTORY : None. ENCOUNTER: Initial ACUITY: 1 day PAIN SCORE: 110 LOCATION: Bilateral chest FINDINGS: Portable AP view of the chest demonstrates a normal-sized cardiac silhouette. No pleural effusion, ai rspace consolidation, or pneumothorax is identified. The bones and soft tissues demonstrate no acute finding. There are degenerative changes of the thoracic spine. CONCLUSION: Stable chest x-ray. No acute cardiopulmonary abnormality is identified. Isidoro Adkins MD on November 30, 2017 at 0:10 Board Certified Radiologist. This report was verified electronically.
[2017-11-30 00:21] LABS: AUTOMATED NEUTROPHIL # 6.8 TH/MM3 (1.8-7.7); BASOPHIL # 0.1 TH/MM3 (0-0.2); BASOPHIL % 0.8 % (0.0-2.0); EOSINOPHIL # 0.3 TH/MM3 (0-0.4); EOSINOPHIL % 3.5 % (0.0-4.0); HEMATOCRIT 36.7 % (39.0-51.0); HEMOGLOBIN 13.3 GM/DL (13.0-17.0); LYMPH % 6.5 % (9.0-44.0); LYMPHOCYTE # 0.5 TH/MM3 (1.0-4.8); MEAN CELL VOLUME 89.3 FL (80.0-100.0); MEAN CORPUSCULAR HEMOGLOBIN 32.2 PG (27.0-34.0); MEAN PLATELET VOLUME 7.1 FL (7.0-11.0); MONOCYTE # 0.6 TH/MM3 (0-0.9); NEUT % 82.2 % (16.0-70.0); PLATELET COUNT 335 TH/MM3 (150-450); RED BLOOD COUNT 4.11 MIL/MM3 (4.50-5.90); RED CELL DISTRIBUTION WIDTH 14.5 % (11.6-17.2); WHITE BLOOD COUNT 8.3 TH/MM3 (4.0-11.0)
[2017-11-30 00:22] LABS: PROTHROMBIN TIME - PATIENT 10.6 SEC (9.8-11.6)
[2017-11-30 00:23] LABS: MEAN CORPUSCULAR HGB CONC 36.1 % (32.0-36.0)
[2017-11-30 00:29] LABS: ALBUMIN 2.6 GM/DL (3.4-5.0); ALT (GPT) 17 U/L (12-78); AST (GOT) 14 U/L (15-37); BICARBONATE 28.5 MEQ/L (21.0-32.0); BLOOD UREA NITROGEN 13 MG/DL (7-18); CALCIUM 8.7 MG/DL (8.5-10.1); CHLORIDE 98 MEQ/L (98-107); CREATININE 0.74 MG/DL (0.60-1.30); GLOMERULAR FILTRATION RATE 101 ML/MIN (>89); GLUCOSE,RANDOM 133 MG/DL (74-106); MAGNESIUM 1.8 MG/DL (1.5-2.5); SODIUM (NA) 135 MEQ/L (136-145)
[2017-11-30 00:33] LABS: ALKALINE PHOSPHATASE 53 U/L (45-117); TOTAL BILIRUBIN ADULT 0.3 MG/DL (0.2-1.0); TROPONIN I LESS THAN 0.02 NG/ML (0.02-0.05)
[2017-11-30 00:58] LABS: LYMPHOCYTES 9 % (9-44); METAMYELOCYTES 2 % (0-1); MONOCYTES 4 % (0-8); NEUTROPHIL # MANUAL DIFF 7.1 TH/MM3 (1.8-7.7); POLYS (SEG NEUTROPHILS) 83 % (16-70)
[2017-11-30 01:09] VITALS: BP 119/59; PULSE 75; RESP 18; O2SAT 100
--- NOTE | 2017-11-30 02:10 | RADRPT ---
EXAM DATE/TIME: 11/30/2017 01:45 [facility] COMPARISON: No previous studies available for comparison. INDICATIONS : Chest pain. IV CONTRAST: 80 cc Omnipaque 350 (iohexol) IV RADIATION DOSE: 9.39 CTDIvol (mGy) MEDICAL HISTORY : Cardiovascular disease. Hypertension. Diabetes mellitus type 2. SURGICAL HISTORY : None. ENCOUNTER: Initial ACUITY: 1 day PAIN SCALE: 4/10 LOCATION: chest TECHNIQUE: Volumetric scanning of the chest was performed using a pulmonary embolism protocol MIP images were re constructed. Using automated exposure control and adjustment of the mA and/or kV according to patien t size, radiation dose was kept as low as reasonably achievable to obtain optimal diagnostic quality images. DICOM format image data is available electronically for review and comparison. Follow-up recommendations for detected pulmonary nodules are based at a minimum on nodule size and pa tient risk factors according to Fleischner Society Guidelines. FINDINGS: PULMONARY ARTERIES: No filling defects are seen in the pulmonary arteries through the segmental level. LUNGS: There is a 7 mm noncalcified pulmonary nodule in the anterior right midlung abutting the minor fissur e. In the left lower lobe there is a 4 mm and 6 mm noncalcified pulmonary nodule. No pneumothorax is present. PLEURAE: There is a trace volume of left pleural fluid. MEDIASTINUM: The heart and great vessels demonstrate no acute finding. There is coronary artery calcification and atherosclerotic disease of the aorta. No lymphadenopathy is present. MUSCULOSKELETAL: There are degenerative changes of the thoracic spine. MISCELLANEOUS: The visualized upper abdominal organs demonstrate no acute abnormality. A small hiatal hernia is pres ent. CONCLUSION: 1. No PE is identified. 2. Small left pleural effusion. 3. There are 3 noncalcified pulmonary nodules measuring up to 7 mm. Suggest correlating with any prio r outside chest CT examinations to confirm longer-term stability. If none are available consider 6-12 month followup noncontrast chest CT. 4. Nonacute findings include coronary artery calcification and small hiatal hernia. Isidoro Adkins MD on November 30, 2017 at 2:04 Board Certified Radiologist. This report was verified electronically.
[2017-11-30] MEDS ORDERED: POTASSIUM CHLORIDE 20 MEQ CONTROLLED RELEASE TAB PO ONE (02:45)
[2017-11-30] MEDS ORDERED: SODIUM CHLORIDE 0.9% FLUSH 10 ML FLUSH IV FLUSH PRN (04:00)
[2017-11-30] MEDS ORDERED: ACETAMINOPHEN 500 MG CPLT PO PRN (04:00)
[2017-11-30 04:25] VITALS: BP 110/55; PULSE 77; RESP 18; O2SAT 100
[2017-11-30 04:26] VITALS: BP 112/67; PULSE 78; RESP 18; O2SAT 100; O2SAT 99
[2017-11-30 04:53] LABS: TROPONIN I LESS THAN 0.02 NG/ML (0.02-0.05)
[2017-11-30 06:29] VITALS: BP 113/56; PULSE 77; RESP 18; O2SAT 99
[2017-11-30 07:28] LABS: TROPONIN I LESS THAN 0.02 NG/ML (0.02-0.05)
[2017-11-30] MEDS ORDERED: SODIUM CHLORIDE 0.9% FLUSH 10 ML FLUSH IV FLUSH SCH (09:00)
[2017-11-30 10:21] VITALS: BP 106/62; PULSE 70; RESP 18; TEMP 98.7; O2SAT 96
[2017-11-30] MEDS ORDERED: GLUCAGON 1 MG/ML VIAL OTHER PRN (12:15)
[2017-11-30] MEDS ORDERED: DEXTROSE 50% IN WATER 50 ML VIAL(D50) IV PUSH PRN (12:15)
--- NOTE | 2017-11-30 12:44 | HHI.HP ---
HPI Primary Care Physician [facility] Chief Complaint Chest pain History of Present Illness This is an 87-year-old male that presents to ED with history of hypertension, hyperlipidemia, diabetes, and rheumatoid arthritis with a complaint of developing a chest discomfort last evening while he was getting ready for bed. Was a dull discomfort in the center of his chest. It was worsened when he taken a deep breath and now is currently only present when he takes a deep breath. He had no associated shortness of breath, nausea, or diaphoresis. His daughter is at the bedside and states that he had a CT of his chest that showed something in his lungs and he was told by the [place] to follow-up with the sanitary landfill supervisor. He will be going to see the sanitary landfill supervisor shortly for this. She was not aware of the abnormality that was seen on the CT of the chest. Currently patient is asymptomatic. Denies recent travel. Denies fevers or chills. Review of Systems General: Patient denies fevers, chills, and recent travel HEENT: Patient denies headache, sore throat, difficulty swallowing. Cardiovascular: Has the chest discomfort as mentioned above. Denies sensation of heart beating rapidly or irregularly. No syncope. Denies diaphoresis. Respiratory: Denies shortness of breath or inspirational chest discomfort. Denies coughing wheezing or hemoptysis. GI: Patient denies nausea, vomiting, diarrhea, abdominal pain, bloody stools. Musculoskeletal: Patient denies joint pain or edema. Denies calf pain or edema. Neurovascular: Patient denies numbness, tingling, weakness in extremities. Denies headache. Endocrine: Denies polyuria and polydipsia. Hematologic: Denies easy bruising. Skin: Denies rash or itching. Past Family Social History Allergies: Coded Allergies: No Known Drug Allergies (Verified Allergy, Unknown, 11/29/17) Past Medical History Hypertension, hyperlipidemia, diabetes, and rheumatoid arthritis. Denies known CAD. Past Surgical History Noncontributory. Reported Medications Reported Meds & Active Scripts Active Reported Azathioprine 50 Mg Tab 50 Mg PO BID Hazardous agent use appropriate precautions for handling and disposal. Naproxen 375 Mg Tab 375 Mg PO BID Ecotrin Low Strength (Aspirin) 81 Mg Tabdr 81 Mg PO DAILY Nifedipine ER 24 HR (Nifedipine) 90 Mg Tab 90 Mg PO DAILY Lisinopril 40 Mg Tab 40 Mg PO DAILY Simvastatin 40 Mg Tab 40 Mg PO HS Potassium Chloride ER (Potassium Chloride) 10 Meq Cap 10 Meq PO DAILY Glipizide ER (Glipizide) 2.5 Mg Alejandro 2.5 Mg PO DAILY Take with breakfast or first main meal of the day Active Ordered Medications Current Medications Medications (Trade) Dose Ordered Sig/Rah Route Start Time Stop Time Status Last Admin (NS Flush) 2 ml UNSCH PRN IVF 11/29/17 23:45 (NS Flush) 2 ml UNSCH PRN IV FLUSH 11/30/17 04:00 (NS Flush) 2 ml BID IV FLUSH 11/30/17 09:00 11/30/17 10:22 (Tylenol) 500 mg Q4H PRN PO 11/30/17 04:00 (KCl) 10 meq DAILY PO 12/01/17 09:00 (Pravachol) 80 mg HS PO 11/30/17 21:00 (NovoLOG SUPPLEMENTAL SCALE) 1 ACHS SLIDING SCALE SQ 11/30/17 17:00 (D50w (Vial) Inj) 50 ml UNSCH PRN IV PUSH 11/30/17 12:15 (Glucagon Inj) 1 mg UNSCH PRN OTHER 11/30/17 12:15 Family History Denies family history of CAD. Social History Non-smoker. Has an average a couple drinks per day. Denies illicit drug use. Physical Exam Vital Signs Vital Signs Date Time Temp Pulse Resp B/P (MAP) Pulse Ox O2 Delivery O2 Flow Rate FiO2 11/30/17 10:21 98.7 70 18 106/62 (77) 96 Room Air 11/30/17 06:29 77 18 113/56 (75) 99 Room Air 11/30/17 04:26 99 Nasal Cannula 2.00 11/30/17 04:26 78 18 112/67 (82) 100 11/30/17 04:25 77 18 110/55 (73) 100 11/30/17 01:09 75 18 98 Room Air 11/30/17 01:09 97 Nasal Cannula 2.00 11/30/17 01:09 75 18 119/59 (79) 100 Room Air Physical Exam GENERAL: This is a well-nourished, well-developed patient, in no apparent distress. Patient speaks in clear complete sentences. Patient is pleasant. His daughter is also at the bedside. HEENT: Head is atraumatic and normocephalic. Neck is supple without lymphadenopathy and trachea is midline. No JVD or carotid bruits. CARDIOVASCULAR: Regular rate and rhythm without murmurs, gallops, or rubs. RESPIRATORY: Clear to auscultation. Breath sounds equal bilaterally. No wheezes , rales, or rhonchi. Chest wall is nontender. No use of accessory muscles. GASTROINTESTINAL: Abdomen is nontender, nondistended. Abdomen soft. No obvious pulsatile mass or bruit. No CVA tenderness. Strong femoral pulses bilaterally. Normal bowel sounds in all quadrants. MUSCULOSKELETAL: Patient is moving upper and lower extremities freely. No calf tenderness or edema, no Homans sign. Strong pulses in upper and lower extremities. NEUROLOGICAL: Patient is alert and oriented. Cranial nerves 2-12 are grossly intact. No focal deficits and speech is clear. SKIN: No rash and turgor is normal. Laboratory Laboratory Tests Test 11/30/17 00:00 11/30/17 04:10 11/30/17 06:20 White Blood Count 8.3 Red Blood Count 4.11 Hemoglobin 13.3 Hematocrit 36.7 Mean Corpuscular Volume 89.3 Mean Corpuscular Hemoglobin 32.2 Mean Corpuscular Hemoglobin Concent 36.1 Red Cell Distribution Width 14.5 Platelet Count 335 Mean Platelet Volume 7.1 Neutrophils (%) (Auto) 82.2 Lymphocytes (%) (Auto) 6.5 Monocytes (%) (Auto) 7.0 Eosinophils (%) (Auto) 3.5 Basophils (%) (Auto) 0.8 Neutrophils # (Auto) 6.8 Lymphocytes # (Auto) 0.5 Monocytes # (Auto) 0.6 Eosinophils # (Auto) 0.3 Basophils # (Auto) 0.1 CBC Comment AUTO DIFF Differential Total Cells Counted 100 Neutrophils % (Manual) 83 Lymphocytes % 9 Monocytes % 4 Eosinophils % 2 Neutrophils # (Manual) 7.1 Metamyelocytes 2 Differential Comment FINAL DIFF MANUAL Platelet Estimate NORMAL Platelet Morphology Comment NORMAL Red Cell Morphology Comment NORMAL Prothrombin Time 10.6 Prothromb Time International Ratio 1.0 Activated Partial Thromboplast Time 25.0 Blood Urea Nitrogen 13 Creatinine 0.74 Random Glucose 133 Total Protein 7.0 Albumin 2.6 Calcium Level 8.7 Magnesium Level 1.8 Alkaline Phosphatase 53 Aspartate Amino Transf (AST/SGOT) 14 Alanine Aminotransferase (ALT/SGPT) 17 Total Bilirubin 0.3 Sodium Level 135 Potassium Level 3.3 Chloride Level 98 Carbon Dioxide Level 28.5 Anion Gap 9 Estimat Glomerular Filtration Rate 101 Total Creatine Kinase 17 22 34 Troponin I LESS THAN 0.02 LESS THAN 0.02 LESS THAN 0.02 B-Type Natriuretic Peptide 46 Lipase 144 Result Diagram: 11/30/17 0000 11/30/17 0000 Imaging Last [address] Angiography 11/30/17 0106 Signed Impressions: Service Date/Time: Thursday, November 30, 2017 01:45 - CONCLUSION: 1. No PE is identified. 2. Small left pleural effusion. 3. There are 3 noncalcified pulmonary nodules measuring up to 7 mm. Suggest correlating with any prior outside chest CT examinations to confirm longer-term stability. If none are available consider 6-12 month followup noncontrast chest CT. 4. Nonacute findings include coronary artery calcification and small hiatal hernia. Isidoro Adkins MD Chest X-Ray 11/29/17 2333 Signed Impressions: Service Date/Time: Wednesday, November 29, 2017 23:44 - CONCLUSION: Stable chest x-ray. No acute cardiopulmonary abnormality is identified. Isidoro Adkins MD Course EKGs are sinus rhythm with nonspecific T-wave changes. No significant ST segment depressions or elevations. Caprini VTE Risk Assessment Caprini VTE Risk Assessment: Mod/High Risk (score >= 2) Caprini Risk Assessment Model Point Value = 1 Point Value = 2 Point Value = 3 Point Value = 5 Age 41-60 Minor surgery BMI > 25 kg/m2 Swollen legs Varicose veins or History of unexplained or recurrent spontaneous Oral contraceptives or hormone replacement Sepsis (< 1 month) Serious lung disease, including pneumonia (< 1 month) Abnormal pulmonary function Acute myocardial infarction Congestive heart failure (< 1 month) History of inflammatory bowel disease Medical patient at bed rest Age 61-74 Arthroscopic surgery Major open surgery (> 45 min) Laparoscopic surgery (> 45 min) Malignancy Confined to bed (> 72 hours) Immobilizing plaster cast Central venous access Age >= 75 History of VTE Family history of VTE Factor V Leiden Prothrombin [id number] Lupus anticoagulant Anticardiolipin antibodies Elevated serum homocysteine Heparin-induced thrombocytopenia Other congenital or acquired thrombophilia Stroke (< 1 month) Elective arthroplasty Hip, pelvis, or leg fracture Acute spinal cord injury (< 1 month) Prophylaxis Regimen Total Risk Factor Score Risk Level Prophylaxis Regimen 0-1 Low Early ambulation 2 Moderate Order ONE of the following: *Sequential Compression Device (SCD) *Heparin 5000 units SQ BID 3-4 Higher Order ONE of the following medications: *Heparin 5000 units SQ TID *Enoxaparin/Lovenox 40 mg SQ daily (WT < 150 kg, CrCl > 30 mL/min) *Enoxaparin/Lovenox 30 mg SQ daily (WT < 150 kg, CrCl > 10-29 mL/min) *Enoxaparin/Lovenox 30 mg SQ BID (WT < 150 kg, CrCl > 30 mL/min) AND/OR *Sequential Compression Device (SCD) 5 or more Highest Order ONE of the following medications: *Heparin 5000 units SQ TID (Preferred with Epidurals) *Enoxaparin/Lovenox 40 mg SQ daily (WT < 150 kg, CrCl > 30 mL/min) *Enoxaparin/Lovenox 30 mg SQ daily (WT < 150 kg, CrCl > 10-29 mL/min) *Enoxaparin/Lovenox 30 mg SQ BID (WT < 150 kg, CrCl > 30 mL/min) AND *Sequential Compression Device (SCD) Assessment and Plan Assessment and Plan * Chest pain: Patient has had serial cardiac enzymes and EKGs for ruling out purposes. He was seen by Dr. Mejia cardiology in the chest pain center and will undergo a Lexiscan. He will be discharged home if his Lexiscan is nonischemic. He should follow-up at that time with his PCP. He should also keep appoint with his sanitary landfill supervisor. Return to ED for interval issues. * Lung nodule: Follow-up with sanitary landfill supervisor. Repeat CT in 6 months of the chest. * Small pleural effusion: Follow-up with sanitary landfill supervisor. * Hypertension: Continue current medication. * Hyperlipidemia: Continue current medication. * Diabetes: Patient will be covered with sliding scale insulin coverage while in chest pain center. Follow his medication discharge. He also needs to follow a diabetic diet. Patient is stable at this time. He is agreeable to this plan. Tuan Salazar Nov 30, 2017 12:44
[2017-11-30] MEDS ORDERED: REGADENOSON INJ 0.4 MG/5 ML SYR ONE (12:58)
--- NOTE | 2017-11-30 14:15 | RADRPT ---
EXAM DATE/TIME: 11/30/2017 12:34 [facility] COMPARISON: No previous studies available for comparison. INDICATIONS : Chest pain and dyspnea. Angina. DOSE: 25.9 mCi Tc99m Myoview at stress. 8.5 mCi Tc99m Myoview at rest. 0.4 mg Lexiscan STRESS SYMPTOMS: None. EJECTION FRACTION: 67% MEDICAL HISTORY : Hypertension. Diabetes mellitus type 2. Rheumatoid arthritis. SURGICAL HISTORY : None. ENCOUNTER: Initial ACUITY: 1 day PAIN SCALE: 0/10 LOCATION: Bilateral chest TECHNIQUE: The patient underwent pharmacologic stress with infusion of prescribed dose. Continuous ECG tracing was monitored during stress. Gated SPECT imaging was performed after stress and conventional SPECT i maging was performed at rest. The examination was performed on a SPECT/CT scanner, both attenuation and non-corrected datasets were reviewed. FINDINGS: DISTRIBUTION: The maximum perfused segment at stress is in the septal wall. PERFUSION STUDY: The pattern of perfusion at stress is within normal limits. GATED STUDY: There is intact wall motion and thickening without hypokinetic or dyskinetic segments. CONCLUSION: Unremarkable myocardial perfusion exam. RISK CATEGORY: low Khari Clement MD on November 30, 2017 at 14:13 Board Certified Radiologist. This report was verified electronically.
--- NOTE | 2017-11-30 14:59 | HHI.DCPOC ---
Discharge Care Plan Diagnosis: (1) Chest pain (2) DM (diabetes mellitus) (3) Hypertension (4) Hyperlipidemia (5) Lung nodule (6) Pleural effusion Goals to Promote Your Health * To prevent worsening of your condition and complications * To maintain your health at the optimal level Directions to Meet Your Goals Take your medications as prescribed Follow your dietary instruction Follow activity as directed Keep your appointments as scheduled Take your immunizations and boosters as scheduled If your symptoms worsen call your PCP, if no PCP go to Urgent Care Center or Emergency Room Smoking is Dangerous to Your Health. Avoid second hand smoke Call the 24-hour hour crisis hotline for domestic abuse at Tuan Salazar Nov 30, 2017 14:59
[2017-11-30 15:26] VITALS: BP 131/59; PULSE 77; RESP 20; TEMP 98; O2SAT 97
--- NOTE | 2017-11-30 15:53 | TR ---
Date Performed: 11/30/2017 Time Performed: 13:05:31 DOCTOR: Zarina Mejia DRUG LIST: CLINICAL HISTORY: REASON FOR TEST: REASON FOR ENDING: OBSERVATION: CONCLUSION: Lexiscan stress test was performed under standard four minute protocol. Radionucl[place] e was injected one minute prior to ending the test. No electrocardiographic abormalities were present to suggest ischemia. Nuclear imaging and interpretation are pending. COMMENTS:
--- NOTE | 2017-11-30 16:00 | EKG ---
Date Performed: 11/30/2017 Time Performed: 06:25:51 PTAGE: 87 years EKG: Sinus rhythm SEPTAL MYOCARDIAL INFARCTION Artifact Since PREVIOUS TRACING , no significant change noted PREVIOUS TRACIN11/30/2017 04.14 DOCTOR: Zarina Mejia Interpretating Date/Time 11/30/2017 15:58:57
--- NOTE | 2017-11-30 16:00 | EKG ---
Date Performed: 11/30/2017 Time Performed: 04:14:29 PTAGE: 87 years EKG: Sinus rhythm EARLY REPOLARIZATION BORDERLINE ECG Since PREVIOUS TRACING , no significant change noted PREVIOUS TRACIN11/30/2017 00.04 DOCTOR: Zarina Mejia Interpretating Date/Time 11/30/2017 15:59:40
--- NOTE | 2017-11-30 16:01 | EKG ---
Date Performed: 11/30/2017 Time Performed: 00:04:39 PTAGE: 87 years EKG: Sinus rhythm NONSPECIFIC T-WAVE ABNORMALITY BORDERLINE ECG Since PREVIOUS TRACING , no significant change noted PREVIOUS TRACIN08/18/2017 18.14 DOCTOR: Zarina Mejia Interpretating Date/Time 11/30/2017 16:00:31
[2017-11-30] MEDS ORDERED: INSULIN ASPART SUPPLEMENTAL SCALE SQ SCH ×2 (17:00)
[2017-11-30] MEDS ORDERED: PRAVASTATIN SOD 80 MG TAB PO SCH (21:00)
[2017-12-01] MEDS ORDERED: POTASSIUM CHLORIDE 10 MEQ CAP PO SCH (09:00)
== END 2017-11-30 17:23 | disposition home or self-care (01) ==
LOC: NEPE 23:15 → NEDA 11-30 02:27 → NEDH 11-30 06:14 → NEPFCDU 11-30 14:25
PROVIDERS: ADMIT Internal Medicine Cardiovascular Disease; ATTEND Internal Medicine Cardiovascular Disease
DX: R07.89 Other chest pain (principal); I25.10 Atherosclerotic heart disease of native coronary artery without angina pectoris; I10 Essential (primary) hypertension; R94.31 Abnormal electrocardiogram [ECG] [EKG]; E78.5 Hyperlipidemia, unspecified; R91.1 Solitary pulmonary nodule; J90 Pleural effusion, not elsewhere classified; E11.9 Type 2 diabetes mellitus without complications; K44.9 Diaphragmatic hernia without obstruction or gangrene; M06.9 Rheumatoid arthritis, unspecified; Z79.82 Long term (current) use of aspirin; Z85.828 Personal history of other malignant neoplasm of skin
CPT/HCPCS: 71045; 71275; 78452; 80053; 82550; 83690; 83735; 83880; 84484; 85007; 85027; 85610; 85730; 93005; 93017; 99285; A9502; G0378; J2785; Q9967